=== PATIENT | female | born 1935 | race African-American/Black ===

== ENCOUNTER 2020-08-27 03:42 | Inpatient (IN) | payer MEDICARE, OTHER ==
[~2020-08-27] VITALS: Ht 162.6 cm; Wt 118.2 kg
[2020-08-27] MEDS ORDERED: ASPIRIN 81M81 MG/TA2 PO (03:52)
[2020-08-27] MEDS ORDERED: ACCUPRIL40MGTAB PO (04:23)
[2020-08-27] MEDS ORDERED: LIPITOR20 MG PO (04:24)
[2020-08-27] MEDS ORDERED: GLUCOPHAGE XR500 M1 PO (04:24)
[2020-08-27] MEDS ORDERED: ARICEPT 5MG PO (04:25)
[2020-08-27] MEDS ORDERED: B-12 500 MCG PO (04:26)
[2020-08-27 05:06] LABS: BASO # 0.1 (0.0-0.2); BASO % 0.3 % (0.0-2.0); EOS # 0.1 (0.0-0.7); EOS % 0.4 % (0-4.0); GRAN # 14.5 (1.4-6.5); HEMATOCRIT 38.1 % (37.0-47.0); HEMOGLOBIN 12.2 g/dl (12.5-16.0); LYMPH # 2.1 (1.2-3.4); LYMPH % 12.2 % (20.0-51.0); MEAN CELL VOLUME 92 fl (80.0-100.0); MEAN CORPUSCULAR HEMOGLOBIN 30 pg (27.0-31.0); MEAN CORPUSCULAR HGB CONC 32 g/dl (33.0-37.0); MEAN PLATELET VOLUME 10.5 fl (7.4-10.4); MONO # 0.6 (0.1-0.6); MONO % 3.5 % (1.7-9.3); PLATELET COUNT 250 K/mm3 (130-400); RED BLOOD COUNT 4.14 M/mm3 (4.10-5.30)
[2020-08-27 05:12] LABS: ALBUMIN 3.7 gm/dL (3.5-5.0); BILIRUBIN,TOTAL 0.3 mg/dL (0.0-1.0); CALCIUM 9.8 mg/dL (8.4-10.2); CREATININE, serum 0.9 (0.52-1.25); POTASSIUM 3.9 mmol/L (3.4-5.0)
[2020-08-27 05:40] LABS: COLLECTION METHOD IN
[2020-08-27 05:49] LABS: MUCOUS Present /lpf; PH 6 (5-8); SQUAMOUS EPITHELIAL None Seen /hpf; URINE APPEARANCE Clear; URINE BACTERIA Rare /hpf; URINE BILIRUBIN Negative (NEGATIVE); URINE BLOOD 1+ (NEGATIVE); URINE COLOR Yellow; URINE GLUCOSE Negative (NEGATIVE); URINE KETONE Negative (NEGATIVE); URINE LEUKOCYTE ESTERASE Trace (NEGATIVE); URINE NITRATE Negative (NEGATIVE); URINE PROTEIN(semi-quant) Negative (NEGATIVE); URINE RBC 0-2 /hpf
[2020-08-27 09:30] VITALS: BP 125/64; PULSE 81; TEMP 99
[2020-08-27 13:00] VITALS: BP 130/56; PULSE 81; TEMP 98.1
[2020-08-27 17:30] VITALS: BP 133/49; PULSE 62; TEMP 97.5
[2020-08-27 20:00] VITALS: BP 145/63; PULSE 101; TEMP 100.1
[2020-08-27 23:54] VITALS: BP 160/94; PULSE 89; TEMP 98.1
[2020-08-28 04:08] VITALS: BP 148/56; PULSE 85; TEMP 98.5
[2020-08-28 07:49] VITALS: BP 156/72; PULSE 82; TEMP 98.9
[2020-08-28 10:12] LABS: BASO # 0.1 (0.0-0.2); BASO % 0.4 % (0.0-2.0); EOS # 0.2 (0.0-0.7); EOS % 1.6 % (0-4.0); GRAN # 9.7 (1.4-6.5); GRAN % 75.3 % (42.2-75.2); LYMPH # 2.2 (1.2-3.4); LYMPH % 17.1 % (20.0-51.0); MEAN CELL VOLUME 90 fl (80.0-100.0); MEAN CORPUSCULAR HEMOGLOBIN 29 pg (27.0-31.0); MEAN CORPUSCULAR HGB CONC 32 g/dl (33.0-37.0); MEAN PLATELET VOLUME 9.9 fl (7.4-10.4); MONO # 0.6 (0.1-0.6); MONO % 4.9 % (1.7-9.3); PLATELET COUNT 238 K/mm3 (130-400); RED BLOOD COUNT 3.81 M/mm3 (4.10-5.30); REDCELL DISTRIBUTION WIDTH-CV 13.1 % (11.5-14.5)
[2020-08-28 10:14] LABS: HEMATOCRIT 34.1 % (37.0-47.0)
[2020-08-28 10:22] LABS: CALCIUM 8.8 mg/dL (8.4-10.2); CREATININE, serum 0.68 (0.52-1.25); POTASSIUM 4.1 mmol/L (3.4-5.0)
[2020-08-28 12:39] VITALS: BP 159/68; PULSE 87; TEMP 99.6
[2020-08-28 15:18] VITALS: BP 156/65; PULSE 92; TEMP 99.4
[2020-08-28 19:59] VITALS: BP 157/78; PULSE 91; TEMP 98.6
[2020-08-28 23:44] VITALS: BP 168/90; PULSE 98; TEMP 98.6
[2020-08-29 03:47] VITALS: BP 157/78; PULSE 83; TEMP 97.9
[2020-08-29 07:26] VITALS: BP 158/61; PULSE 78; TEMP 98.3
[2020-08-29 09:20] LABS: BASO # 0.1 (0.0-0.2); BASO % 0.6 % (0.0-2.0); EOS # 0.5 (0.0-0.7); EOS % 3.6 % (0-4.0); GRAN # 9.6 (1.4-6.5); GRAN % 75.8 % (42.2-75.2); HEMOGLOBIN 11.6 g/dl (12.5-16.0); LYMPH # 1.8 (1.2-3.4); LYMPH % 14.1 % (20.0-51.0); MEAN CELL VOLUME 89 fl (80.0-100.0); MEAN CORPUSCULAR HEMOGLOBIN 29 pg (27.0-31.0); MEAN CORPUSCULAR HGB CONC 33 g/dl (33.0-37.0); MEAN PLATELET VOLUME 9.9 fl (7.4-10.4); MONO # 0.7 (0.1-0.6); MONO % 5.5 % (1.7-9.3); PLATELET COUNT 239 K/mm3 (130-400); RED BLOOD COUNT 3.97 M/mm3 (4.10-5.30)
[2020-08-29 09:22] LABS: HEMATOCRIT 35.5 % (37.0-47.0)
[2020-08-29 09:29] LABS: CALCIUM 8.9 mg/dL (8.4-10.2); CREATININE, serum 0.74 (0.52-1.25)
[2020-08-29 12:04] VITALS: BP 155/65; PULSE 72; TEMP 97.7
[2020-08-29 16:36] VITALS: BP 153/83; PULSE 80; TEMP 98.4
[2020-08-29 19:58] VITALS: BP 156/65; PULSE 91; TEMP 99.7
[2020-08-30] VITALS (12 sets, daily range): BP systolic 153–173; BP diastolic 64–80; PULSE 79–96; TEMP 97.3–98.9
[2020-08-30 06:54] LABS: BASO # 0.1 (0.0-0.2); BASO % 0.5 % (0.0-2.0); EOS # 0.3 (0.0-0.7); EOS % 2.7 % (0-4.0); GRAN # 7.9 (1.4-6.5); GRAN % 77.9 % (42.2-75.2); HEMATOCRIT 37.2 % (37.0-47.0); HEMOGLOBIN 12.1 g/dl (12.5-16.0); LYMPH # 1.4 (1.2-3.4); LYMPH % 13.5 % (20.0-51.0); MEAN CELL VOLUME 89 fl (80.0-100.0); MEAN CORPUSCULAR HEMOGLOBIN 29 pg (27.0-31.0); MEAN CORPUSCULAR HGB CONC 33 g/dl (33.0-37.0); MEAN PLATELET VOLUME 10.4 fl (7.4-10.4); MONO # 0.5 (0.1-0.6); PLATELET COUNT 226 K/mm3 (130-400); RED BLOOD COUNT 4.19 M/mm3 (4.10-5.30); REDCELL DISTRIBUTION WIDTH-CV 12.9 % (11.5-14.5)
[2020-08-30 07:06] LABS: CALCIUM 8.8 mg/dL (8.4-10.2); CREATININE, serum 0.73 (0.52-1.25); POTASSIUM 3.8 mmol/L (3.4-5.0)
[2020-08-31] VITALS (9 sets, daily range): BP systolic 121–157; BP diastolic 43–98; PULSE 84–95; TEMP 97.3–99.4
[2020-08-31 06:55] LABS: BASO % 0.2 % (0.0-2.0); EOS % 0.1 % (0-4.0); GRAN # 10.7 (1.4-6.5); GRAN % 87.5 % (42.2-75.2); HEMOGLOBIN 10.4 g/dl (12.5-16.0); LYMPH # 0.8 (1.2-3.4); LYMPH % 6.5 % (20.0-51.0); MEAN CELL VOLUME 89 fl (80.0-100.0); MEAN CORPUSCULAR HEMOGLOBIN 29 pg (27.0-31.0); MEAN CORPUSCULAR HGB CONC 33 g/dl (33.0-37.0); MEAN PLATELET VOLUME 11.4 fl (7.4-10.4); MONO # 0.6 (0.1-0.6); MONO % 5.2 % (1.7-9.3); PLATELET COUNT 236 K/mm3 (130-400); RED BLOOD COUNT 3.57 M/mm3 (4.10-5.30); REDCELL DISTRIBUTION WIDTH-CV 12.7 % (11.5-14.5)
[2020-08-31 07:05] LABS: CALCIUM 8.6 mg/dL (8.4-10.2); CREATININE, serum 0.89 (0.52-1.25); POTASSIUM 4.2 mmol/L (3.4-5.0)
[2020-08-31 07:41] LABS: HEMATOCRIT 31.9 % (37.0-47.0)
[2020-09-01 03:33] VITALS: BP 138/47; PULSE 83; TEMP 98.6
[2020-09-01 06:45] LABS: BASO # 0.1 (0.0-0.2); BASO % 0.3 % (0.0-2.0); EOS # 0.3 (0.0-0.7); EOS % 2.2 % (0-4.0); GRAN # 10.9 (1.4-6.5); GRAN % 73.5 % (42.2-75.2); HEMOGLOBIN 10.5 g/dl (12.5-16.0); LYMPH # 2.6 (1.2-3.4); LYMPH % 17.8 % (20.0-51.0); MEAN CELL VOLUME 90 fl (80.0-100.0); MEAN CORPUSCULAR HEMOGLOBIN 30 pg (27.0-31.0); MEAN CORPUSCULAR HGB CONC 33 g/dl (33.0-37.0); MEAN PLATELET VOLUME 10.1 fl (7.4-10.4); MONO # 0.9 (0.1-0.6); MONO % 5.9 % (1.7-9.3); PLATELET COUNT 261 K/mm3 (130-400); RED BLOOD COUNT 3.55 M/mm3 (4.10-5.30); REDCELL DISTRIBUTION WIDTH-CV 13.2 % (11.5-14.5)
[2020-09-01 06:46] LABS: HEMATOCRIT 31.9 % (37.0-47.0)
[2020-09-01 06:47] LABS: CALCIUM 9.1 mg/dL (8.4-10.2); CREATININE, serum 0.97 (0.52-1.25); POTASSIUM 4.1 mmol/L (3.4-5.0)
[2020-09-01 07:24] VITALS: BP 137/53; PULSE 84; TEMP 98
[2020-09-01 12:00] VITALS: BP 134/52; PULSE 77; TEMP 97.5
[2020-09-01 15:47] VITALS: BP 144/53; PULSE 87; TEMP 97.6
[2020-09-01 19:41] VITALS: BP 136/54; PULSE 84; TEMP 97.6
[2020-09-02 00:04] VITALS: BP 127/40; PULSE 91; TEMP 97.9
[2020-09-02 04:06] VITALS: BP 108/49; PULSE 85; TEMP 97.8
[2020-09-02 06:25] LABS: BASO # 0.1 (0.0-0.2); BASO % 0.6 % (0.0-2.0); EOS # 0.5 (0.0-0.7); EOS % 3.9 % (0-4.0); GRAN # 8.5 (1.4-6.5); GRAN % 70.1 % (42.2-75.2); HEMOGLOBIN 11.1 g/dl (12.5-16.0); LYMPH # 2.3 (1.2-3.4); LYMPH % 18.9 % (20.0-51.0); MEAN CELL VOLUME 90 fl (80.0-100.0); MEAN CORPUSCULAR HEMOGLOBIN 29 pg (27.0-31.0); MEAN CORPUSCULAR HGB CONC 32 g/dl (33.0-37.0); MONO # 0.7 (0.1-0.6); MONO % 5.8 % (1.7-9.3); PLATELET COUNT 224 K/mm3 (130-400); REDCELL DISTRIBUTION WIDTH-CV 13.4 % (11.5-14.5)
[2020-09-02 06:36] LABS: HEMATOCRIT 34.3 % (37.0-47.0)
[2020-09-02 07:21] LABS: CALCIUM 9.1 mg/dL (8.4-10.2); CREATININE, serum 0.79 (0.52-1.25); POTASSIUM 4.1 mmol/L (3.4-5.0)
[2020-09-02 07:42] VITALS: BP 144/50; PULSE 97; TEMP 97.8
[2020-09-02] MEDS ORDERED: VITAMIN C500 MG PO (10:43)
[2020-09-02] MEDS ORDERED: ASPIRIN 32325 MG/TA1 PO (10:43)
[2020-09-02] MEDS ORDERED: CELEBREX 200MG200 MG PO (10:43)
[2020-09-02] MEDS ORDERED: OSCAL 500 TAB500 MG PO (10:43)
[2020-09-02] MEDS ORDERED: DUO-KAPS1 CAP PO (10:43)
[2020-09-02] MEDS ORDERED: NORCO 325 MG-51 TAB PO (10:44)
[2020-09-02] MEDS ORDERED: NOVLOG SQ (10:45)
[2020-09-02 11:58] VITALS: BP 149/58; PULSE 91; TEMP 97.6
[2020-09-02] MEDS ORDERED: SEROQUEL50 MG PO (14:45)
== END 2020-09-02 13:10 | DRG 522 ==
LOC: COL.ER 03:42 → SURG 05:03 → MEDICAL 09-02 09:06 → SURG 09-02 09:06
PROVIDERS: Emergency Medicine; Orthopaedic Surgery Sports Medicine; Student in an Organized Health Care Education/Training Program; ADMIT Internal Medicine
PROC: 0SRS0J9 Replacement of Left Hip Joint, Femoral Surface with Synthetic Substitute, Cemented, Open Approach (ICD-10-PCS; principal; 2020-08-30 14:30)
DX: S72.032A Displaced midcervical fracture of left femur, initial encounter for closed fracture (principal); N39.0 Urinary tract infection, site not specified; F03.90 Unspecified dementia, unspecified severity, without behavioral disturbance, psychotic disturbance, mood disturbance, and anxiety; E11.9 Type 2 diabetes mellitus without complications; E78.5 Hyperlipidemia, unspecified; R41.0 Disorientation, unspecified; W18.30XA Fall on same level, unspecified, initial encounter; Z20.822 Contact with and (suspected) exposure to COVID-19; Y93.9 Activity, unspecified; Y92.022 Bathroom in mobile home as the place of occurrence of the external cause
CPT/HCPCS: 99223-AI; 99232-AI; 99233-AI; 99239; A9284; C1776; J0360; J0690; J0696; J1100; J1800; J1815; J2250; J2270; J2370; J2405; J2704; J2795; J3010; J7030; J7120